=== PATIENT | female | born 1950 | race Caucasian/White ===

== ENCOUNTER 2021-02-13 18:12 | Emergency (ER) | payer OTHER, SELFPAY ==
[~2021-02-13] VITALS: Ht 162.6 cm; Wt 90.7 kg
[2021-02-13 18:32] VITALS: BP_SYST 190
--- NOTE | 2021-02-13 18:32 | NUR ---
PT TO REMAIN IN THE ER LOBBY UNTIL ER BED BECOMES AVAILABLE.
--- NOTE | 2021-02-13 18:34 | NUR ---
EKG DONE IN TRIAGE. RESULTS TO DR. LUI FOR INTERPRETATION.
--- NOTE | 2021-02-13 18:40 | NUR ---
PT IS AAO AND AMBULATORY REPORTING A PAIN THAT STARTED IN BETWEEN SHOULDER BLADES ON TUESDAY. PT REPORTS THAT NOW PAIN IS RADIATING TO HER CHEST SINCE YESTERDAY AND SHE RATES THE PAIN 9/10 ON PAIN SCALE. PT IS COVID VACCINATED AND REPORTS HISTORY OF DM, HTN, AND HYPERLIPIDEMIA. PT BP IS NOTED TO BE HYPERTENSIVE 190/92.
--- NOTE | 2021-02-13 19:15 | NUR ---
PT TO BED 5 FOR EVALUATION. PT ATTACHED TO WEATHER CLERK. REPORT GIVEN TO EDGARDO ALEJANDRE WHO WILL ASSUME CARE.
--- NOTE | 2021-02-13 19:47 | NUR ---
# 20 gauge angiocath placed to RAC. Use of asceptic technique. Opsite placed over site. Blood return noted. Blood for lab drawn from site. Flushed with 10 cc of normal saline. No evidence of infiltration noted. Patient tolerated well.
--- NOTE | 2021-02-13 19:53 | NUR ---
DR. LUI AT BEDSIDE FOR EVALUATION.
[2021-02-13 19:59] LABS: BASOPHILS # (AUTO) 0.1 K/uL (0.0-0.2); BASOPHILS % (AUTO) 0.7 % (0.0-2.0); EOSINOPHILS # (AUTO) 0.2 K/uL (0.0-0.4); EOSINOPHILS % (AUTO) 3.1 % (0.0-4.0); HEMATOCRIT 33.9 % (36-48); HEMOGLOBIN 11.5 g/dL (12.0-16.0); LYMPHOCYTES # (AUTO) 1.2 K/uL (1.0-5.5); LYMPHOCYTES % (AUTO) 14.8 % (20.5-51.5); MEAN CORPUSCULAR HEMOGLOBIN 29 pg (27-31); MEAN CORPUSCULAR HGB CONC 34 % (32-36); MEAN CORPUSCULAR VOLUME 86 fL (79.0-98.0); MONOCYTES # (AUTO) 0.6 K/uL (0.0-1.0); MONOCYTES % (AUTO) 7.1 % (1.7-9.3); NEUTROPHILS # (AUTO) 5.8 K/uL (1.8-7.7); NEUTROPHILS % (AUTO) 74.3 % (40.0-70.0); PLATELET COUNT (AUTO) 127 K/uL (130-430); RED BLOOD CELL COUNT(AUTO) 3.96 MIL/uL (4.2-6.2); RED CELL DISTRIBUTION WIDTH 13.5 % (9.0-15.0); WHITE BLOOD COUNT (AUTO) 7.8 K/uL (4.8-10.8)
[2021-02-13] MEDS ORDERED: KETOROLAC TROMETHAMINE 30 MG VIAL IVP ONE (20:00)
[2021-02-13 20:07] LABS: ANION GAP 9 (5-15); CALCIUM 9.6 mg/dL (8.4-11.0); CHLORIDE 103 mmol/L (98-107); CREATININE 1.45 mg/dL (0.55-1.30); GLUCOSE 63 mg/dL (70-99); POTASSIUM 4.1 mmol/L (3.5-5.1); SODIUM SERUM 139 mmol/L (136-145); UREA NITROGEN, BLOOD 36 mg/dL (8-21)
[2021-02-13 20:11] LABS: GFR AFRICAN AMERICAN 46 mL/min (>90)
[2021-02-13 20:15] LABS: ALANINE AMINOTRANSFERASE 24 U/L (12-78); ALBUMIN 3.5 g/dL (3.4-4.8); ASPARTATE AMINOTRANSFERASE 16 U/L (10-37); TOTAL BILIRUBIN 1.3 mg/dL (0.0-1.0)
[2021-02-13] MEDS ORDERED: NAPR-1172 PO (21:22)
[2021-02-13 21:38] VITALS: BP_SYST 190
--- NOTE | 2021-02-13 21:38 | NUR ---
Patient given written and verbal discharge instructions and verbalizes understanding. DR.KWAW LIZ HDZ discussed with patient the results and treatment provided. Patient in stable condition. ID arm band removed. IV catheter removed intact and dressing applied, no active bleeding. Rx of NAPROSYN given. Patient educated on pain management and to follow up with PMD. Pain Scale 0/10. Opportunity for questions provided and answered. Medication side effect fact sheet provided.
== END 2021-02-13 21:38 | disposition home or self-care (01) ==
LOC: SED 18:12
DX: R07.89 Other chest pain (principal); I10 Essential (primary) hypertension; E11.9 Type 2 diabetes mellitus without complications; Z20.822 Contact with and (suspected) exposure to COVID-19
CPT/HCPCS: 36415; 71045; 80053; 83880; 84484; 85025; 93005; 96374; 99285